=== PATIENT | male | born 1935 | race Caucasian/White ===

== ENCOUNTER 2018-11-12 15:43 | Inpatient (IN) | payer MEDICARE, OTHER ==
[2018-11-12] MEDS ORDERED: ACETAMINOPHEN 325 MG TAB PO (19:00)
[2018-11-12] MEDS ORDERED: ONDANSETRON 4 MG INJ IV (19:00)
[2018-11-12] MEDS: INSULIN ASPART [NOVOLOG] 3 ML PEN SC (21:00)
[2018-11-12] MEDS: CEFTRIAXONE 1 GM/50 ML (PMX) 50 ML IVPB (22:07)
[2018-11-12] MEDS: DEXTROSE 5%-0.45% NACL 1,000 ML IV (22:07)
[2018-11-12] MEDS: metroNIDAZOLE 500 MG/NS (PMX) 100 ML IVPB (23:19)
[2018-11-13] MEDS: INSULIN ASPART [NOVOLOG] 3 ML PEN SC ×6 (01:00→21:00)
[2018-11-13] MEDS: ACCU-CHEK XX (02:00)
[2018-11-13 05:18] LABS: ADD MAN DIFF? NO; BASOPHIL # 0.1 10^3/ul (0.0-0.1); BASOPHILS % 0.6 % (0.0-2.0); EOSINOPHILS # 0.2 10^3/ul (0.0-0.5); EOSINOPHILS % 2.3 % (0.0-7.0); HEMATOCRIT 30.8 % (42.0-52.0); LYMPHOCYTES # 2.1 10^3/ul (0.8-2.9); MEAN CORPUSCULAR HEMOGLOBIN 31.9 pg (29.0-33.0); MEAN CORPUSCULAR HGB CONC 32.5 g/dl (32.0-37.0); MEAN CORPUSCULAR VOLUME 98.4 fl (82.0-101.0); MEAN PLATELET VOLUME 8.7 fl (7.4-10.4); MONOCYTE # 0.8 10^3/ul (0.3-0.9); MONOCYTES % 9.3 % (0.0-11.0); NEUTROPHIL # 5.5 10^3/ul (1.6-7.5); NEUTROPHILS % 63.6 % (39.0-77.0); PLATELET COUNT 218 10^3/UL (140-415); RED BLOOD COUNT 3.13 10^6/ul (4.70-6.10); RED CELL DISTRIBUTION WIDTH 15.9 % (11.5-14.5)
[2018-11-13 05:18] LABS: WHITE BLOOD COUNT 8.7 10^3/ul (4.8-10.8)
[2018-11-13 05:50] LABS: ALANINE AMINOTRANSFERASE 12 IU/L (13-69); ALBUMIN 2.8 g/dl (3.3-4.9); ALBUMIN/GLOBULIN RATIO 0.96; ALKALINE PHOSPHATASE 45 IU/L (42-121); ANION GAP 7 (5-13); ASPARTATE AMINO TRANSFERASE 19 IU/L (15-46); BLOOD UREA NITROGEN 22 mg/dl (7-20); CALCIUM 8.5 mg/dl (8.4-10.2); CARBON DIOXIDE 17 mmol/L (21-31); CHLORIDE 118 mmol/L (97-110); CREATININE 1.59 mg/dl (0.61-1.24); GLUCOSE 104 mg/dl (70-220); POTASSIUM 3.7 mmol/L (3.5-5.1); SODIUM 142 mmol/L (135-144); TOTAL PROTEIN 5.7 g/dl (6.1-8.1)
[2018-11-13] MEDS: PANTOPRAZOLE 40 MG INJ IV (06:08)
[2018-11-13] MEDS: metroNIDAZOLE 500 MG/NS (PMX) 100 ML IVPB ×3 (06:08→21:53)
[2018-11-13] MEDS: DEXTROSE 5%-0.45% NACL 1,000 ML IV ×2 (08:20→17:14)
[2018-11-13] MEDS: CEFTRIAXONE 1 GM/50 ML (PMX) 50 ML IVPB (18:11)
[2018-11-14] MEDS: INSULIN ASPART [NOVOLOG] 3 ML PEN SC ×4 (01:00→12:43)
[2018-11-14] MEDS: ACCU-CHEK XX (01:43)
[2018-11-14] MEDS: metroNIDAZOLE 500 MG/NS (PMX) 100 ML IVPB ×3 (06:08→21:53)
[2018-11-14] MEDS: DEXTROSE 5%-0.45% NACL 1,000 ML IV ×2 (06:08→21:53)
[2018-11-14] MEDS: PANTOPRAZOLE 40 MG INJ IV (06:08)
[2018-11-14 06:36] LABS: ADD MAN DIFF? NO
[2018-11-14 06:49] LABS: WHITE BLOOD COUNT 7.7 10^3/ul (4.8-10.8)
[2018-11-14 06:49] LABS: BASOPHIL # 0.1 10^3/ul (0.0-0.1); BASOPHILS % 0.8 % (0.0-2.0); EOSINOPHILS # 0.3 10^3/ul (0.0-0.5); EOSINOPHILS % 3.9 % (0.0-7.0); HEMOGLOBIN 9.8 g/dl (14.0-18.0); LYMPHOCYTES # 2.5 10^3/ul (0.8-2.9); LYMPHOCYTES % 32.6 % (15.0-51.0); MEAN CORPUSCULAR HEMOGLOBIN 32.1 pg (29.0-33.0); MEAN CORPUSCULAR HGB CONC 32.7 g/dl (32.0-37.0); MEAN CORPUSCULAR VOLUME 98.4 fl (82.0-101.0); MEAN PLATELET VOLUME 8.9 fl (7.4-10.4); MONOCYTE # 0.8 10^3/ul (0.3-0.9); MONOCYTES % 10.4 % (0.0-11.0); PLATELET COUNT 203 10^3/UL (140-415); RED BLOOD COUNT 3.05 10^6/ul (4.70-6.10); RED CELL DISTRIBUTION WIDTH 15.9 % (11.5-14.5)
[2018-11-14] MEDS ORDERED: VANCOMYCIN IV PER PHARMACY XX (13:00)
[2018-11-14] MEDS ORDERED: GLUCOSE GEL 15 GRAM TUBE BUCCAL (13:30)
[2018-11-14] MEDS ORDERED: GLUCAGON 1 MG INJ IM (13:30)
[2018-11-14] MEDS ORDERED: DEXTROSE 50% 50 ML SYRINGE IV ×2 (13:30)
[2018-11-14] MEDS ORDERED: GLUCOSE GEL 15 GRAM TUBE PO ×2 (13:30)
[2018-11-14] MEDS: VANCOMYCIN HCL 250 MG/5ML POSYG PO ×2 (14:21→18:57)
[2018-11-14] MEDS: Insulin NOVOLOG SS MILD Algorithm (SS with meals and bedtime) SC ×2 (17:10→20:06)
[2018-11-14] MEDS ORDERED: INSULIN ASPART [NOVOLOG] 3 ML PEN SC (17:35)
[2018-11-15] MEDS: VANCOMYCIN HCL 250 MG/5ML POSYG PO ×5 (00:14→23:32)
[2018-11-15] MEDS: ACCUCHECK AT 2AM (Patients on SS coverage) XX (02:00)
[2018-11-15 05:05] LABS: ADD MAN DIFF? NO
[2018-11-15 05:08] LABS: BASOPHIL # 0.1 10^3/ul (0.0-0.1); BASOPHILS % 0.8 % (0.0-2.0); EOSINOPHILS # 0.4 10^3/ul (0.0-0.5); HEMATOCRIT 31.5 % (42.0-52.0); HEMOGLOBIN 10.2 g/dl (14.0-18.0); LYMPHOCYTES # 2.1 10^3/ul (0.8-2.9); LYMPHOCYTES % 28.4 % (15.0-51.0); MEAN CORPUSCULAR HEMOGLOBIN 32.1 pg (29.0-33.0); MEAN CORPUSCULAR HGB CONC 32.4 g/dl (32.0-37.0); MEAN CORPUSCULAR VOLUME 99.1 fl (82.0-101.0); MEAN PLATELET VOLUME 8.9 fl (7.4-10.4); MONOCYTE # 0.8 10^3/ul (0.3-0.9); NEUTROPHILS % 54.5 % (39.0-77.0); PLATELET COUNT 202 10^3/UL (140-415); RED BLOOD COUNT 3.18 10^6/ul (4.70-6.10); RED CELL DISTRIBUTION WIDTH 15.8 % (11.5-14.5)
[2018-11-15 05:08] LABS: WHITE BLOOD COUNT 7.4 10^3/ul (4.8-10.8)
[2018-11-15 05:19] LABS: HEMOGLOBIN A1C 5.5 % (0-5.9)
[2018-11-15] MEDS: PANTOPRAZOLE 40 MG INJ IV (05:28)
[2018-11-15] MEDS: metroNIDAZOLE 500 MG/NS (PMX) 100 ML IVPB ×3 (05:28→22:21)
[2018-11-15 05:31] LABS: ANION GAP 6 (5-13); BLOOD UREA NITROGEN 18 mg/dl (7-20); CALCIUM 8.3 mg/dl (8.4-10.2); CARBON DIOXIDE 17 mmol/L (21-31); CHLORIDE 118 mmol/L (97-110); CREATININE 1.66 mg/dl (0.61-1.24); GLUCOSE 97 mg/dl (70-220); POTASSIUM 3.7 mmol/L (3.5-5.1); SODIUM 141 mmol/L (135-144)
[2018-11-15] MEDS: Insulin NOVOLOG SS MILD Algorithm (SS with meals and bedtime) SC ×4 (07:30→20:56)
[2018-11-15] MEDS: CLOPIDOGREL 75 MG TAB PO (14:52)
[2018-11-15] MEDS: ASPIRIN (EC) 81 MG TAB PO (14:52)
[2018-11-15] MEDS: AMLODIPINE 5 MG TAB PO (14:53)
[2018-11-15] MEDS ORDERED: TAMSULOSIN (SR) 0.4 MG CAP PO (19:46)
[2018-11-15] MEDS: TAMSULOSIN (SR) 0.4 MG CAP PO (20:53)
[2018-11-15] MEDS: hydrALAzine 20 MG INJ IV (23:39)
[2018-11-16] MEDS: ACCUCHECK AT 2AM (Patients on SS coverage) XX (02:00)
[2018-11-16] MEDS: VANCOMYCIN HCL 250 MG/5ML POSYG PO ×3 (06:02→17:21)
[2018-11-16] MEDS: PANTOPRAZOLE (EC) 40 MG TAB PO (06:02)
[2018-11-16] MEDS: metroNIDAZOLE 500 MG/NS (PMX) 100 ML IVPB ×3 (06:02→20:23)
[2018-11-16] MEDS: Insulin NOVOLOG SS MILD Algorithm (SS with meals and bedtime) SC ×4 (07:30→20:23)
[2018-11-16] MEDS: ASPIRIN (EC) 81 MG TAB PO (08:59)
[2018-11-16] MEDS: CLOPIDOGREL 75 MG TAB PO (09:00)
[2018-11-16] MEDS: AMLODIPINE 5 MG TAB PO (09:00)
[2018-11-16] MEDS: ALBUTEROL 0.083% (NEB) 2.5 MG/3 ML AMP HHN ×2 (15:00→21:03)
[2018-11-16] MEDS: TAMSULOSIN (SR) 0.4 MG CAP PO (20:22)
[2018-11-17] MEDS: VANCOMYCIN HCL 250 MG/5ML POSYG PO ×4 (00:12→17:33)
[2018-11-17] MEDS: ACCUCHECK AT 2AM (Patients on SS coverage) XX (01:19)
[2018-11-17] MEDS: ALBUTEROL 0.083% (NEB) 2.5 MG/3 ML AMP HHN ×4 (01:29→19:48)
[2018-11-17] MEDS: metroNIDAZOLE 500 MG/NS (PMX) 100 ML IVPB ×3 (05:10→22:00)
[2018-11-17] MEDS: PANTOPRAZOLE (EC) 40 MG TAB PO ×2 (05:10→17:33)
[2018-11-17 06:30] LABS: ALANINE AMINOTRANSFERASE 20 IU/L (13-69); ALBUMIN 2.7 g/dl (3.3-4.9); ALBUMIN/GLOBULIN RATIO 0.96; ALKALINE PHOSPHATASE 40 IU/L (42-121); ANION GAP 8 (5-13); ASPARTATE AMINO TRANSFERASE 23 IU/L (15-46); BLOOD UREA NITROGEN 19 mg/dl (7-20); CALCIUM 8.4 mg/dl (8.4-10.2); CARBON DIOXIDE 15 mmol/L (21-31); CHLORIDE 118 mmol/L (97-110); CREATININE 1.58 mg/dl (0.61-1.24); GLUCOSE 83 mg/dl (70-220); POTASSIUM 3.8 mmol/L (3.5-5.1); SODIUM 141 mmol/L (135-144); TOTAL PROTEIN 5.5 g/dl (6.1-8.1)
[2018-11-17] MEDS: Insulin NOVOLOG SS MILD Algorithm (SS with meals and bedtime) SC ×4 (07:30→21:00)
[2018-11-17] MEDS: ASPIRIN (EC) 81 MG TAB PO (08:25)
[2018-11-17] MEDS: CLOPIDOGREL 75 MG TAB PO (08:26)
[2018-11-17] MEDS: AMLODIPINE 5 MG TAB PO (08:26)
[2018-11-17 17:08] LABS: HEMATOCRIT 31.4 % (42.0-52.0); HEMOGLOBIN 10.4 g/dl (14.0-18.0)
[2018-11-17] MEDS: TAMSULOSIN (SR) 0.4 MG CAP PO (21:33)
[2018-11-18] MEDS: VANCOMYCIN HCL 250 MG/5ML POSYG PO ×5 (00:20→23:57)
[2018-11-18] MEDS: ALBUTEROL 0.083% (NEB) 2.5 MG/3 ML AMP HHN ×4 (01:17→20:12)
[2018-11-18] MEDS: ACCUCHECK AT 2AM (Patients on SS coverage) XX (02:00)
[2018-11-18] MEDS: PANTOPRAZOLE (EC) 40 MG TAB PO ×2 (05:39→18:09)
[2018-11-18] MEDS: metroNIDAZOLE 500 MG/NS (PMX) 100 ML IVPB ×3 (05:39→22:37)
[2018-11-18 05:52] LABS: ADD MAN DIFF? NO
[2018-11-18 05:58] LABS: WHITE BLOOD COUNT 6.8 10^3/ul (4.8-10.8)
[2018-11-18 05:58] LABS: BASOPHILS % 0.6 % (0.0-2.0); EOSINOPHILS # 0.2 10^3/ul (0.0-0.5); EOSINOPHILS % 3.1 % (0.0-7.0); HEMATOCRIT 30.6 % (42.0-52.0); HEMOGLOBIN 10.3 g/dl (14.0-18.0); LYMPHOCYTES # 2.1 10^3/ul (0.8-2.9); LYMPHOCYTES % 30.2 % (15.0-51.0); MEAN CORPUSCULAR HEMOGLOBIN 31.9 pg (29.0-33.0); MEAN CORPUSCULAR HGB CONC 33.7 g/dl (32.0-37.0); MEAN CORPUSCULAR VOLUME 94.7 fl (82.0-101.0); MEAN PLATELET VOLUME 8.9 fl (7.4-10.4); MONOCYTE # 0.8 10^3/ul (0.3-0.9); NEUTROPHIL # 3.7 10^3/ul (1.6-7.5); NEUTROPHILS % 54.8 % (39.0-77.0); PLATELET COUNT 222 10^3/UL (140-415); RED BLOOD COUNT 3.23 10^6/ul (4.70-6.10); RED CELL DISTRIBUTION WIDTH 15.6 % (11.5-14.5)
[2018-11-18 06:33] LABS: ANION GAP 13 (5-13); BLOOD UREA NITROGEN 19 mg/dl (7-20); CALCIUM 8.6 mg/dl (8.4-10.2); CARBON DIOXIDE 14 mmol/L (21-31); CHLORIDE 117 mmol/L (97-110); CREATININE 1.49 mg/dl (0.61-1.24); GLUCOSE 101 mg/dl (70-220); POTASSIUM 3.6 mmol/L (3.5-5.1); SODIUM 144 mmol/L (135-144)
[2018-11-18] MEDS: Insulin NOVOLOG SS MILD Algorithm (SS with meals and bedtime) SC ×4 (07:02→20:52)
[2018-11-18] MEDS: DEXTROSE 5%-0.45% NACL 1,000 ML IV (08:30)
[2018-11-18] MEDS: AMLODIPINE 5 MG TAB PO ×3 (08:30→08:38)
[2018-11-18] MEDS: ETOMIDATE 20 MG INJ (15:59)
[2018-11-18] MEDS ORDERED: ONDANSETRON 4 MG INJ IV (16:00)
[2018-11-18] MEDS: PROPOFOL 20 ML (16:54)
[2018-11-18] MEDS: TAMSULOSIN (SR) 0.4 MG CAP PO (20:48)
[2018-11-18] MEDS: NA BICARBONATE 650 MG TAB PO (20:48)
[2018-11-19] MEDS: DEXTROSE 5%-0.45% NACL 1,000 ML IV ×2 (00:51→15:36)
[2018-11-19] MEDS: ACCUCHECK AT 2AM (Patients on SS coverage) XX (02:00)
[2018-11-19] MEDS: ALBUTEROL 0.083% (NEB) 2.5 MG/3 ML AMP HHN ×4 (02:25→19:49)
[2018-11-19] MEDS: PANTOPRAZOLE (EC) 40 MG TAB PO (05:52)
[2018-11-19] MEDS: VANCOMYCIN HCL 250 MG/5ML POSYG PO ×3 (05:53→17:48)
[2018-11-19] MEDS: metroNIDAZOLE 500 MG/NS (PMX) 100 ML IVPB ×3 (05:54→21:59)
[2018-11-19] MEDS: Insulin NOVOLOG SS MILD Algorithm (SS with meals and bedtime) SC ×4 (07:30→20:41)
[2018-11-19] MEDS: AMLODIPINE 5 MG TAB PO (08:39)
[2018-11-19] MEDS: NA BICARBONATE 650 MG TAB PO ×3 (08:40→20:42)
[2018-11-19 09:03] LABS: ADD MAN DIFF? NO
[2018-11-19 09:07] LABS: BASOPHILS % 0.4 % (0.0-2.0); EOSINOPHILS # 0.2 10^3/ul (0.0-0.5); EOSINOPHILS % 2.8 % (0.0-7.0); HEMOGLOBIN 10.5 g/dl (14.0-18.0); LYMPHOCYTES # 1.5 10^3/ul (0.8-2.9); LYMPHOCYTES % 20.4 % (15.0-51.0); MEAN CORPUSCULAR HEMOGLOBIN 31.4 pg (29.0-33.0); MEAN CORPUSCULAR HGB CONC 32.8 g/dl (32.0-37.0); MEAN CORPUSCULAR VOLUME 95.8 fl (82.0-101.0); MEAN PLATELET VOLUME 8.9 fl (7.4-10.4); MONOCYTE # 0.7 10^3/ul (0.3-0.9); MONOCYTES % 9.5 % (0.0-11.0); NEUTROPHIL # 4.8 10^3/ul (1.6-7.5); NEUTROPHILS % 66.6 % (39.0-77.0); PLATELET COUNT 232 10^3/UL (140-415); RED BLOOD COUNT 3.34 10^6/ul (4.70-6.10)
[2018-11-19 09:07] LABS: WHITE BLOOD COUNT 7.2 10^3/ul (4.8-10.8)
[2018-11-19 09:22] LABS: PHOSPHORUS 3.1 mg/dl (2.5-4.9)
[2018-11-19 09:22] LABS: ANION GAP 13 (5-13); BLOOD UREA NITROGEN 15 mg/dl (7-20); CALCIUM 8.7 mg/dl (8.4-10.2); CARBON DIOXIDE 16 mmol/L (21-31); CHLORIDE 116 mmol/L (97-110); CREATININE 1.46 mg/dl (0.61-1.24); GLUCOSE 100 mg/dl (70-220); MAGNESIUM 1.9 mg/dl (1.7-2.5); POTASSIUM 3.8 mmol/L (3.5-5.1); SODIUM 145 mmol/L (135-144)
[2018-11-19] MEDS: TAMSULOSIN (SR) 0.4 MG CAP PO (20:42)
[2018-11-20] MEDS: VANCOMYCIN HCL 250 MG/5ML POSYG PO ×5 (00:06→23:57)
[2018-11-20] MEDS: ALBUTEROL 0.083% (NEB) 2.5 MG/3 ML AMP HHN ×5 (01:14→21:01)
[2018-11-20] MEDS: ACCUCHECK AT 2AM (Patients on SS coverage) XX (02:00)
[2018-11-20 05:55] LABS: ADD MAN DIFF? NO
[2018-11-20 05:58] LABS: WHITE BLOOD COUNT 6.1 10^3/ul (4.8-10.8)
[2018-11-20 05:58] LABS: BASOPHILS % 0.5 % (0.0-2.0); EOSINOPHILS # 0.1 10^3/ul (0.0-0.5); HEMATOCRIT 32.1 % (42.0-52.0); HEMOGLOBIN 10.6 g/dl (14.0-18.0); LYMPHOCYTES # 1.4 10^3/ul (0.8-2.9); MEAN CORPUSCULAR HEMOGLOBIN 31.8 pg (29.0-33.0); MEAN CORPUSCULAR VOLUME 96.4 fl (82.0-101.0); MEAN PLATELET VOLUME 8.9 fl (7.4-10.4); MONOCYTE # 0.8 10^3/ul (0.3-0.9); MONOCYTES % 12.7 % (0.0-11.0); NEUTROPHIL # 3.8 10^3/ul (1.6-7.5); NEUTROPHILS % 62.3 % (39.0-77.0); PLATELET COUNT 224 10^3/UL (140-415); RED BLOOD COUNT 3.33 10^6/ul (4.70-6.10); RED CELL DISTRIBUTION WIDTH 16.1 % (11.5-14.5)
[2018-11-20] MEDS: Insulin NOVOLOG SS MILD Algorithm (SS with meals and bedtime) SC ×4 (08:47→20:13)
[2018-11-20] MEDS: AMLODIPINE 5 MG TAB PO (08:56)
[2018-11-20] MEDS: NA BICARBONATE 650 MG TAB PO ×2 (08:56→12:29)
[2018-11-20] MEDS: PANTOPRAZOLE (EC) 40 MG TAB PO (08:56)
[2018-11-20] MEDS: CLOPIDOGREL 75 MG TAB PO (10:14)
[2018-11-20] MEDS: ASPIRIN (EC) 81 MG TAB PO (10:15)
[2018-11-20] MEDS: ALBUTEROL/IPRATROPIUM (NEB) 3 ML AMP HHN ×2 (16:32→21:00)
[2018-11-20] MEDS: AZITHROMYCIN 250 MG TAB PO (17:03)
[2018-11-20] MEDS: FUROSEMIDE 40 MG INJ IV (17:30)
[2018-11-20] MEDS: GUAIFENESIN/CODEINE 5ML CUP PO (17:33)
[2018-11-20] MEDS: TAMSULOSIN (SR) 0.4 MG CAP PO (20:06)
[2018-11-21] MEDS: ALBUTEROL/IPRATROPIUM (NEB) 3 ML AMP HHN ×6 (00:53→21:28)
[2018-11-21] MEDS: ACCUCHECK AT 2AM (Patients on SS coverage) XX (01:41)
[2018-11-21] MEDS: VANCOMYCIN HCL 250 MG/5ML POSYG PO ×3 (05:17→17:37)
[2018-11-21] MEDS: Insulin NOVOLOG SS MILD Algorithm (SS with meals and bedtime) SC ×4 (07:30→20:34)
[2018-11-21] MEDS: PANTOPRAZOLE (EC) 40 MG TAB PO (08:46)
[2018-11-21] MEDS: FUROSEMIDE 40 MG INJ IV ×2 (08:46→17:18)
[2018-11-21] MEDS: CLOPIDOGREL 75 MG TAB PO (08:46)
[2018-11-21] MEDS: AMLODIPINE 5 MG TAB PO (08:46)
[2018-11-21] MEDS: ASPIRIN (EC) 81 MG TAB PO (08:46)
[2018-11-21 09:54] LABS: ADD MAN DIFF? NO
[2018-11-21 10:08] LABS: BASOPHILS % 0.5 % (0.0-2.0); EOSINOPHILS # 0.2 10^3/ul (0.0-0.5); EOSINOPHILS % 3.5 % (0.0-7.0); HEMATOCRIT 32.1 % (42.0-52.0); HEMOGLOBIN 10.6 g/dl (14.0-18.0); LYMPHOCYTES # 2.3 10^3/ul (0.8-2.9); LYMPHOCYTES % 36.2 % (15.0-51.0); MEAN CORPUSCULAR HEMOGLOBIN 31.7 pg (29.0-33.0); MEAN CORPUSCULAR VOLUME 96.1 fl (82.0-101.0); MEAN PLATELET VOLUME 9.1 fl (7.4-10.4); MONOCYTE # 0.6 10^3/ul (0.3-0.9); MONOCYTES % 10.2 % (0.0-11.0); NEUTROPHIL # 3.1 10^3/ul (1.6-7.5); NEUTROPHILS % 49.4 % (39.0-77.0); PLATELET COUNT 211 10^3/UL (140-415); RED BLOOD COUNT 3.34 10^6/ul (4.70-6.10); RED CELL DISTRIBUTION WIDTH 16.3 % (11.5-14.5)
[2018-11-21 10:08] LABS: WHITE BLOOD COUNT 6.3 10^3/ul (4.8-10.8)
[2018-11-21 10:12] LABS: ANION GAP 10 (5-13); BLOOD UREA NITROGEN 21 mg/dl (7-20); CALCIUM 8.7 mg/dl (8.4-10.2); CARBON DIOXIDE 20 mmol/L (21-31); CHLORIDE 108 mmol/L (97-110); CREATININE 1.74 mg/dl (0.61-1.24); GLUCOSE 103 mg/dl (70-220); POTASSIUM 3.7 mmol/L (3.5-5.1); SODIUM 138 mmol/L (135-144)
[2018-11-21 10:15] LABS: PHOSPHORUS 3.3 mg/dl (2.5-4.9)
[2018-11-21 10:15] LABS: MAGNESIUM 1.8 mg/dl (1.7-2.5)
[2018-11-21] MEDS: TAMSULOSIN (SR) 0.4 MG CAP PO (20:30)
[2018-11-21] MEDS: APIXABAN 5 MG TABLET PO (20:30)
[2018-11-22] MEDS: VANCOMYCIN HCL 250 MG/5ML POSYG PO ×4 (01:15→17:39)
[2018-11-22] MEDS: ALBUTEROL/IPRATROPIUM (NEB) 3 ML AMP HHN ×6 (01:46→19:57)
[2018-11-22] MEDS: ACCUCHECK AT 2AM (Patients on SS coverage) XX (02:00)
[2018-11-22] MEDS: FUROSEMIDE 40 MG INJ IV ×2 (06:00→17:42)
[2018-11-22 07:01] LABS: ADD MAN DIFF? NO
[2018-11-22 07:13] LABS: BASOPHILS % 0.5 % (0.0-2.0); EOSINOPHILS # 0.4 10^3/ul (0.0-0.5); EOSINOPHILS % 6.7 % (0.0-7.0); HEMATOCRIT 31.5 % (42.0-52.0); HEMOGLOBIN 10.5 g/dl (14.0-18.0); LYMPHOCYTES % 34.9 % (15.0-51.0); MEAN CORPUSCULAR HEMOGLOBIN 31.6 pg (29.0-33.0); MEAN CORPUSCULAR HGB CONC 33.3 g/dl (32.0-37.0); MEAN CORPUSCULAR VOLUME 94.9 fl (82.0-101.0); MEAN PLATELET VOLUME 9.3 fl (7.4-10.4); MONOCYTE # 0.6 10^3/ul (0.3-0.9); MONOCYTES % 9.9 % (0.0-11.0); NEUTROPHIL # 2.7 10^3/ul (1.6-7.5); NEUTROPHILS % 47.8 % (39.0-77.0); PLATELET COUNT 206 10^3/UL (140-415); RED BLOOD COUNT 3.32 10^6/ul (4.70-6.10)
[2018-11-22 07:13] LABS: WHITE BLOOD COUNT 5.7 10^3/ul (4.8-10.8)
[2018-11-22] MEDS: Insulin NOVOLOG SS MILD Algorithm (SS with meals and bedtime) SC ×4 (07:25→21:00)
[2018-11-22 07:29] LABS: ANION GAP 8 (5-13); BLOOD UREA NITROGEN 29 mg/dl (7-20); CALCIUM 8.6 mg/dl (8.4-10.2); CARBON DIOXIDE 23 mmol/L (21-31); CHLORIDE 108 mmol/L (97-110); CREATININE 1.82 mg/dl (0.61-1.24); GLUCOSE 88 mg/dl (70-220); POTASSIUM 3.5 mmol/L (3.5-5.1); SODIUM 139 mmol/L (135-144)
[2018-11-22] MEDS: PANTOPRAZOLE (EC) 40 MG TAB PO (08:31)
[2018-11-22] MEDS: AMLODIPINE 5 MG TAB PO (08:31)
[2018-11-22] MEDS: APIXABAN 5 MG TABLET PO ×2 (08:32→21:14)
[2018-11-22] MEDS: TAMSULOSIN (SR) 0.4 MG CAP PO (21:14)
[2018-11-22] MEDS: hydrALAzine 20 MG INJ IV (21:27)
[2018-11-23] MEDS: ALBUTEROL/IPRATROPIUM (NEB) 3 ML AMP HHN ×3 (00:42→08:00)
[2018-11-23] MEDS: VANCOMYCIN HCL 250 MG/5ML POSYG PO ×3 (00:45→14:34)
[2018-11-23] MEDS: ACCUCHECK AT 2AM (Patients on SS coverage) XX (02:00)
[2018-11-23] MEDS: FUROSEMIDE 40 MG INJ IV (06:46)
[2018-11-23] MEDS: Insulin NOVOLOG SS MILD Algorithm (SS with meals and bedtime) SC ×2 (07:25→11:30)
[2018-11-23] MEDS: APIXABAN 5 MG TABLET PO (08:15)
[2018-11-23] MEDS: PANTOPRAZOLE (EC) 40 MG TAB PO (08:16)
[2018-11-23] MEDS: AMLODIPINE 5 MG TAB PO (08:16)
[2018-11-23] MEDS: hydrALAzine 20 MG INJ IV (08:25)
[2018-11-23 11:42] LABS: ANION GAP 12 (5-13); BLOOD UREA NITROGEN 32 mg/dl (7-20); CARBON DIOXIDE 20 mmol/L (21-31); CHLORIDE 106 mmol/L (97-110); CREATININE 1.58 mg/dl (0.61-1.24); GLUCOSE 171 mg/dl (70-220); POTASSIUM 3.5 mmol/L (3.5-5.1); SODIUM 138 mmol/L (135-144)
[2018-11-28] MEDS ORDERED: APIXABAN 5 MG TABLET PO (21:00)
== END 2018-11-23 15:34 | disposition hospice, home (50) | DRG 371 ==
LOC: TEL 11-21 14:28 → 5EC 11-23 09:13 → PP2 15:43
PROVIDERS: Internal Medicine Nephrology
PROC: 0W3P8ZZ Control Bleeding in Gastrointestinal Tract, Via Natural or Artificial Opening Endoscopic (ICD-10-PCS; principal; 2018-11-18 16:04)
DX: A04.72 Enterocolitis due to Clostridium difficile, not specified as recurrent (principal); K31.811 Angiodysplasia of stomach and duodenum with bleeding; K57.32 Diverticulitis of large intestine without perforation or abscess without bleeding; C18.9 Malignant neoplasm of colon, unspecified; E87.2 Acidosis; I82.441 Acute embolism and thrombosis of right tibial vein; K56.600 Partial intestinal obstruction, unspecified as to cause; E11.9 Type 2 diabetes mellitus without complications; N40.0 Benign prostatic hyperplasia without lower urinary tract symptoms; E78.5 Hyperlipidemia, unspecified; K31.819 Angiodysplasia of stomach and duodenum without bleeding; D64.9 Anemia, unspecified; E66.3 Overweight; Z68.29 Body mass index [BMI] 29.0-29.9, adult; I50.9 Heart failure, unspecified; I11.0 Hypertensive heart disease with heart failure; Z95.2 Presence of prosthetic heart valve; Z86.73 Personal history of transient ischemic attack (TIA), and cerebral infarction without residual deficits; Z95.1 Presence of aortocoronary bypass graft
CPT/HCPCS: 70450; 71045; 80048; 80053; 82962; 83036; 83735; 84100; 85014; 85018; 85025; 87075; 87081; 87400; 93306; 93970; 94640; 94664

== ENCOUNTER 2019-03-16 20:59 | Inpatient (IN) | payer MEDICARE, OTHER ==
[2019-03-16] MEDS: HYDROmorphONE 0.5 MG/0.5 ML SYG SC (22:25)
[2019-03-16] MEDS ORDERED: ONDANSETRON 4 MG TAB PO (22:30)
[2019-03-17] MEDS: HYDROmorphONE 0.5 MG/0.5 ML SYG SC ×4 (03:13→20:55)
[2019-03-18] MEDS: HYDROmorphONE 0.5 MG/0.5 ML SYG SC ×4 (02:19→19:03)
[2019-03-18] MEDS: FUROSEMIDE 20 MG TAB PO (06:16)
[2019-03-19] MEDS: HYDROmorphONE 0.5 MG/0.5 ML SYG SC ×4 (00:13→17:39)
[2019-03-20] MEDS: HYDROmorphONE 0.5 MG/0.5 ML SYG SC ×3 (02:34→19:41)
[2019-03-20] MEDS: SCOPOLAMINE 1.5 MG PATCH TRANSDERM (15:13)
[2019-03-21] MEDS: morphine LIQ (20 MG/ML PO SYG) SL (00:05)
[2019-03-21] MEDS: HYDROmorphONE 0.5 MG/0.5 ML SYG SC ×4 (01:33→21:16)
[2019-03-21] MEDS ORDERED: HYDROmorphONE 0.5 MG/0.5 ML SYG SC (17:00)
[2019-03-22] MEDS: HYDROmorphONE 0.5 MG/0.5 ML SYG SC ×6 (01:28→20:50)
[2019-03-22] MEDS: SCOPOLAMINE 1.5 MG PATCH TRANSDERM (15:26)
[2019-03-23] MEDS: HYDROmorphONE 0.5 MG/0.5 ML SYG SC ×6 (00:58→21:09)
[2019-03-24] MEDS: HYDROmorphONE 0.5 MG/0.5 ML SYG SC ×6 (01:07→20:52)
[2019-03-25] MEDS: HYDROmorphONE 0.5 MG/0.5 ML SYG SC ×7 (00:34→18:42)
[2019-03-25] MEDS ORDERED: morphine LIQ (20 MG/ML PO SYG) SL (14:30)
[2019-03-25] MEDS ORDERED: DIMETHICONE STICK TOP (14:30)
[2019-03-25] MEDS ORDERED: ALBUTEROL/IPRATROPIUM (NEB) 3 ML AMP HHN (14:30)
[2019-03-25] MEDS ORDERED: ARTIFICIAL TEARS 15 ML OPH BOTH EYES (14:30)
== END 2019-03-25 23:45 | disposition expired | DRG 374 ==
LOC: 5EC 20:59
DX: C18.9 Malignant neoplasm of colon, unspecified (principal); A41.9 Sepsis, unspecified organism; K65.0 Generalized (acute) peritonitis; K63.1 Perforation of intestine (nontraumatic); C79.9 Secondary malignant neoplasm of unspecified site; I50.22 Chronic systolic (congestive) heart failure; I13.0 Hypertensive heart and chronic kidney disease with heart failure and stage 1 through stage 4 chronic kidney disease, or unspecified chronic kidney disease; Z79.899 Other long term (current) drug therapy; N18.9 Chronic kidney disease, unspecified; I25.10 Atherosclerotic heart disease of native coronary artery without angina pectoris; Z95.1 Presence of aortocoronary bypass graft; Z66 Do not resuscitate; I46.9 Cardiac arrest, cause unspecified; F03.90 Unspecified dementia, unspecified severity, without behavioral disturbance, psychotic disturbance, mood disturbance, and anxiety
CPT/HCPCS: 87081; 92610